=== PATIENT | female | born 1970 | race Two or more races ===

== ENCOUNTER 2022-01-03 09:22 | Emergency (ER) | payer OTHER ==
[~2022-01-03] VITALS: Ht 160 cm; Wt 90.7 kg
[2022-01-03] MEDS ORDERED: MECL25CH38 PO (09:58)
[2022-01-03] MEDS ORDERED: MECLIZINE HCL 25 MG TAB PO ONE (10:00)
[2022-01-03 10:07] LABS: Basophils # (auto) 0 10 ^3/uL (0-0.2); Basophils % (auto) 0.6 % (0.0-2.0); Eosinophils # (auto) 0.1 10 ^3/uL (0-0.8); Eosinophils % (auto) 1.3 % (0.0-7.0); Lymphocytes # (auto) 1.4 10 ^3/uL (0.4-5.4); Lymphocytes % (auto) 22.4 % (10.0-50.0); Mean Corpuscular Hemoglobin 27.7 pg (28.0-32.0); Mean Corpuscular Hgb Conc. 33.4 g/dL (32.0-36.0); Mean Corpuscular Volume 82.9 fL (80.0-100.0); Monocytes # (auto) 0.4 10 ^3/uL (0-1.3); Neutrophils # (auto) 4.2 10 ^3/uL (1.6-8.6); Neutrophils % (auto) 69.7 % (37.0-80.0); Nucleated Red Blood Cells % 0.3 %; Red Blood Cells 5.06 10^6/uL (4.0-5.20); Red Cell Distribution Width 14.5 % (11.8-14.3); White Blood Cell 6.1 10^3/uL (4.4-10.8)
[2022-01-03 10:08] LABS: Urine Bacteria FEW /hpf (None Seen); Urine Blood Negative /uL (Negative); Urine Specific Gravity 1.002 (1.001-1.035); Urine WBC <1 /hpf (0 - 5)
[2022-01-03 10:22] LABS: Albumin 3.8 g/dL (3.4-5.0); Calcium 9.3 mg/dL (8.5-10.1); Potassium 4.5 mmol/L (3.5-5.1)
[2022-01-03 10:28] LABS: Bilirubin, Total 0.5 mg/dL (0.2-1.0); Total Protein 7.5 g/dL (6.4-8.2)
[2022-01-03 11:37] VITALS: BP 168/84
== END 2022-01-03 11:42 | disposition home or self-care (01) ==
LOC: EDBD 09:22 → ER 09:22
DX: R42 Dizziness and giddiness (principal)
CPT/HCPCS: 36415; 70450; 71046; 80053; 81001; 84484; 85025; 99285; J8597